=== PATIENT | female | born 1980 | race Caucasian/White ===

== ENCOUNTER 2021-04-08 12:30 | Outpatient (REF) | payer MEDICAID, OTHER, SELFPAY ==
--- NOTE | ~2021-04-08 | US_ITS ---
EXAMINATION: US PELVIS AND TRANSVAGINAL. CLINICAL INFORMATION: Pelvic pain. COMPARISON: Ultrasound pelvis 11/29/2019 TECHNIQUE: Transabdominal and transvaginal imaging of pelvis is performed. FINDINGS: The uterus is anteverted and anteflexed measuring 9.1 cm in length, 4.4 cm AP and 5.4 cm in transverse dimension. Endometrial thickness is 0.9 cm. There are 2 hypoechoic lesions visualized. Lesion in the right body of uterus measures 1.7 x 2.2 x 1.5 cm. Previously it measured 1.6 x 1.4 x 1.4 cm. Lesion in the left posterior body of uterus measures 1.7 x 1.5 x 1.3 cm. Previously it measured 1.6 x 1.3 x 1.8 cm. Right ovary measures 3.0 x 3.1 x 1.8 cm and volume 8.9 mL. Previously it measured 3.0 x 1.7 x 2.0 cm and volume 5.5 mL. Left ovary measures 1.8 x 2.4 x 1.3 cm and volume 2.9 mL. Previously it measured 3.4 x 1.8 x 1.9 cm and volume 6.2 mL. There is no free fluid in the cul-de-sac. US/US pelvic and transvaginal IMPRESSION: 2 uterine fibroids, stable compared to 2019 ultrasound exam.
== END 2021-04-08 12:31 | disposition home or self-care (01) ==
LOC: HO.US 12:30
PROVIDERS: PCP Internal Medicine; Visit Provider Internal Medicine
DX: R10.2 Pelvic and perineal pain (principal)
CPT/HCPCS: 76830; 76856

== ENCOUNTER 2021-09-24 08:10 | Outpatient (REF) | payer MEDICAID, OTHER, SELFPAY ==
--- NOTE | ~2021-09-24 | MM_ITS ---
EXAMINATION: MM SCREENING DIGITAL BREAST TOMOSYNTHESIS, BILATERAL CLINICAL INFORMATION: Screening. Asymptomatic. The lifetime risk of breast cancer based on the Tyrer-Cuzick Model is 6.7%. COMPARISON: Mammography: 01/22/2019 TECHNIQUE: Digital breast tomosynthesis is performed in both the craniocaudal and mediolateral oblique views along with computer-aided detection (CAD). Synthesized 2D images are generated from the tomosynthesis. FINDINGS: The breasts are heterogeneously dense, which may obscure small masses (ACR BI-RADS breast composition Category c). There is a stable parenchymal pattern of the right breast. In the deep superior aspect of the left breast there is an approximately 2.0 x 0.8 cm irregularly-marginated density which appears somewhat larger than on prior study but may represent superimposition of fibroglandular tissue. Recommend spot compression view in mediolateral oblique projection as well as 90 degree mediolateral view for further evaluation. MM/MM tomosynthesis screening BI IMPRESSION: Question developing density deep superior aspect of the left breast. ASSESSMENT: BI-RADS 0: Incomplete - Need Additional Imaging Evaluation RECOMMENDATION: 1. Additional views of the left breast. 2. Targeted ultrasound if warranted after review of the additional views. 3. Radiology department staff will contact the patient for additional imaging. This patient's information was entered into a reminder system with a target due date for their next mammogram.
== END 2021-09-24 08:11 | disposition home or self-care (01) ==
LOC: HO.MAMMO 08:10
PROVIDERS: Visit Provider Internal Medicine
DX: Z12.31 Encounter for screening mammogram for malignant neoplasm of breast (principal)
CPT/HCPCS: 77063; 77067

== ENCOUNTER 2021-09-30 08:13 | Outpatient (REF) | payer MEDICAID, OTHER, SELFPAY ==
--- NOTE | ~2021-09-30 | MM_ITS ---
EXAMINATION: MM DIAGNOSTIC DIGITAL BREAST TOMOSYNTHESIS, LEFT CLINICAL INFORMATION: Recall from screening for developing density posterior upper left breast. TC score 7%. COMPARISON: Mammography: 09/24/2021, 01/22/2019 TECHNIQUE: Digital breast tomosynthesis is performed. 2D images are generated from the tomosynthesis. The following views are obtained: Spot MLO, standard ML FINDINGS: There are scattered areas of fibroglandular density (ACR BI-RADS breast composition Category b). Breast tissue composition borders on heterogeneously dense. There are scattered shifting fibroglandular densities with positioning among the exams. Additional views show no underlying mass or developing density or architectural abnormality. No significant changes from prior exams. Results are discussed with the patient at time of visit. MM/MM tomosynthesis added views L IMPRESSION: Additional views show scattered fibroglandular densities similar to prior exams. ASSESSMENT: BI-RADS 1: Negative RECOMMENDATION: Routine annual mammography screening. This patient's information was entered into a reminder system with a target due date for their next mammogram.
== END 2021-09-30 08:14 | disposition home or self-care (01) ==
LOC: HO.MAMMO 08:13
PROVIDERS: PCP Internal Medicine; Visit Provider Internal Medicine
DX: R92.2 Inconclusive mammogram (principal)
CPT/HCPCS: 77061; 77065

== ENCOUNTER 2022-09-13 13:58 | Outpatient (REF) | payer MEDICAID, OTHER, SELFPAY ==
--- NOTE | ~2022-09-13 | US_ITS ---
EXAMINATION: US PELVIS CLINICAL INFORMATION: Abnormal bleeding. COMPARISON: 04/08/2021 pelvic ultrasound. TECHNIQUE: Ultrasound of the pelvis is performed using both transabdominal and transvaginal transducers along with Doppler. Transvaginal imaging is performed due to inadequate visualization transabdominally. FINDINGS: Uterus: Anteverted/anteflexed 8.7 x 4.9 x 5.7 cm. Several uterine fibroids are seen. A warehouse representative intramural fibroid in the posterior body mildly displaces the adjacent endometrium anteriorly and measures 2.7 x 2.4 x 2.3 cm. A second intramural fibroid in the left body measures 1.9 x 1.9 x 1.4 cm. The endometrium again, is displaced anteriorly and measures up to 0.6 cm in the visualized segment of the body without focal abnormality. And IUD is seen positioned in the lower uterine segment terminating at the level the inferior margin of the posterior body. Fibroid detailed above. The endometrium is closed without focal abnormality. Right ovary measures 2.9 x 1.7 x 2.8 cm. Volume 7.2 mL. Dominant follicle measuring 1.1 cm. Doppler showed no abnormal vascular flow. Left ovary was not confidently identified. No left adnexal abnormality. US/US pelvic and transvaginal IMPRESSION: 1. Fibroid uterus as detailed above. The IUD is seen within the endometrial canal in the inferior uterine segment. Proper placement appears to have been blocked by the fibroid in the posterior body. The fibroid abuts and displaces the endometrium and could be a source of the patient's abnormal bleeding. No other significant endometrial abnormality. 2. No right ovarian abnormality. Nonvisualization of the left ovary without overt left adnexal abnormality.
== END 2022-09-13 13:59 | disposition home or self-care (01) ==
LOC: HO.HMGCX 13:58
PROVIDERS: PCP Internal Medicine; Visit Provider Internal Medicine
DX: N93.9 Abnormal uterine and vaginal bleeding, unspecified (principal)
CPT/HCPCS: 76830; 76856

== ENCOUNTER 2022-10-27 13:11 | Outpatient (REF) | payer MEDICAID, OTHER, SELFPAY ==
--- NOTE | ~2022-10-27 | MM_ITS ---
EXAMINATION: MM SCREENING DIGITAL BREAST TOMOSYNTHESIS, BILATERAL CLINICAL INFORMATION: Screening. Asymptomatic. The lifetime risk of breast cancer based on the Tyrer-Cuzick Model is 6%. COMPARISON: Mammography: 09/30/2021, 09/24/2021 01/22/2019 (baseline) TECHNIQUE: Digital breast tomosynthesis is performed in both the craniocaudal and mediolateral oblique views along with computer-aided detection (CAD). Synthesized 2D images are generated from the tomosynthesis. FINDINGS: There are scattered areas of fibroglandular density (ACR BI-RADS breast composition Category b). There are no significant masses, abnormal calcifications, or other abnormalities. Breast tissue composition borders on heterogeneously dense. No developing density or architectural abnormality. The axilla and skin contours are unremarkable. No significant changes. MM/MM tomosynthesis screening BI IMPRESSION: No mammographic evidence of malignancy. ASSESSMENT: BI-RADS 1: Negative RECOMMENDATION: Routine annual mammography screening. This patient's information was entered into a reminder system with a target due date for their next mammogram.
== END 2022-10-27 13:12 | disposition home or self-care (01) ==
LOC: HO.MAMMO 13:11
PROVIDERS: PCP Internal Medicine; Visit Provider Internal Medicine
DX: Z12.31 Encounter for screening mammogram for malignant neoplasm of breast (principal)
CPT/HCPCS: 77063; 77067

== ENCOUNTER 2023-10-31 12:44 | Outpatient (REF) | payer OTHER, SELFPAY | END 2023-10-31 12:45 | disposition home or self-care (01) | LOC: HO.MAMMO 12:44 | PROVIDERS: PCP Internal Medicine; Visit Provider Internal Medicine | DX: Z12.31 Encounter for screening mammogram for malignant neoplasm of breast (principal) | CPT/HCPCS: 77063; 77067 ==

== ENCOUNTER → 2023-10-31 13:00 | Outpatient (BNV) | payer OTHER, SELFPAY | PROVIDERS: PCP Internal Medicine; Visit Provider Radiology Diagnostic Radiology | DX: Z12.31 Encounter for screening mammogram for malignant neoplasm of breast (principal) | CPT/HCPCS: 77063; 77067 ==

== ENCOUNTER 2024-02-23 16:28 | Outpatient (REF) | payer OTHER, SELFPAY ==
[2024-02-23 17:17] LABS: MANUAL DIFF FLAG NO
[2024-02-23 17:26] LABS: Basophils Percent Auto 0.2 % (0-2); Eosinophils Absolute Auto 0.2 X10*3/uL (0.0-0.4); Eosinophils Percent Auto 1.7 % (0-4); Hematocrit 35.2 % (37.0-47.0); Hemoglobin 12.6 g/dl (12.0-16.0); Imm Gran Abs Auto 0.04 X10*3/uL (0.00-0.03); Imm Gran Pct Auto 0.5 % (0.0-0.4); Lymphocytes Absolute Auto 2.7 X10*3/uL (1.2-4.9); Lymphocytes Percent Auto 31.9 % (20-40); Mean Corpuscular HGB Conc 35.8 g/dl (31.0-35.0); Mean Corpuscular Hemoglobin 32.1 pg (27.0-33.0); Mean Corpuscular Volume 89.8 fL (80.0-98.0); Mean Platelet Volume 11.1 fL (9.4-12.3); Monocytes Absolute Auto 0.8 X10*3/uL (0.1-1.2); Monocytes Percent Auto 9.4 % (2-11); Neutrophils Absolute Auto 4.8 x10*3/uL (2.0-8.3); Neutrophils Percent Auto 56.3 % (45-73); Platelet Count 306 X10*3/uL (160-400); Red Blood Count 3.92 X10*6/uL (4.20-5.50); Red Cell Distribution Width 12.5 % (11.0-16.0); White Blood Count 8.6 X10*3/uL (4.8-10.8)
[2024-02-23 18:46] LABS: Alanine Aminotransferase 18 U/L (0-31); Alkaline Phosphatase 56 U/L (39-117); Anion Gap 10 (12-20); Aspartate Amino Transferase 17 U/L (5-31); Bilirubin Total 0.3 mg/dL (0.0-1.0); Blood Urea Nitrogen 19 mg/dL (9-16); Calcium 9.5 mg/dL (8.4-10.2); Carbon Dioxide 28 mmol/L (22-29); Chloride 104 mmol/L (96-108); Cholesterol 211 mg/dL (<200); Estimated Glomerular Filt Rate > 60; Glucose Random 76 mg/dL (60-115); HDL Cholesterol 41 mg/dL (>40); LDL Cholesterol Calculated 130 mg/dL (<100); Potassium 3.1 mmol/L (3.3-5.1); Sodium 139 mmol/L (135-145); Total Protein 7.6 g/dL (6.5-8.0); Triglycerides 201 mg/dL (<150)
[2024-02-23 19:02] LABS: Vitamin B12 261 pg/mL (200-900)
[2024-02-23 19:03] LABS: TSH reflex Free T4 0.66 uIU/mL (0.32-4.0); Vitamin D 25-OH Total 27.1 ng/mL (>30)
== END 2024-02-23 16:29 | disposition home or self-care (01) ==
LOC: HO.CHCLDS 16:28
PROVIDERS: Visit Provider Internal Medicine
DX: J01.90 Acute sinusitis, unspecified (principal); B96.89 Other specified bacterial agents as the cause of diseases classified elsewhere; I10 Essential (primary) hypertension; E78.00 Pure hypercholesterolemia, unspecified
CPT/HCPCS: 36415; 80053; 80061; 82306; 82607; 84443; 85025

== ENCOUNTER 2024-11-13 15:04 | Outpatient (REF) | payer OTHER, SELFPAY | END 2024-11-13 15:05 | disposition home or self-care (01) | LOC: HO.MAMMO 15:04 | PROVIDERS: PCP Internal Medicine; Visit Provider Internal Medicine | DX: Z12.31 Encounter for screening mammogram for malignant neoplasm of breast (principal) | CPT/HCPCS: 77063; 77067 ==

== ENCOUNTER → 2024-11-13 15:15 | Outpatient (BNV) | payer OTHER, SELFPAY | PROVIDERS: PCP Internal Medicine; Visit Provider Internal Medicine | DX: Z12.31 Encounter for screening mammogram for malignant neoplasm of breast (principal) | CPT/HCPCS: 77063; 77067 ==

== ENCOUNTER 2025-11-18 14:54 | Outpatient (REF) | payer OTHER, SELFPAY ==
--- OUTSIDE RECORDS SUMMARY | 2025-11-18 18:08 | XMS_ITS | Encounter Summary ---
Author Organization [employer] Address [address] [facility] 7 [place] [address] Care Team Providers Care Packer And Carry Out Name Role Phone Monet Brunner MD Primary Care Provider [phone]- [phone] Encounter Details Date Type Department Care Team ([facility] Contact Info) Description 09/29/2023 Orders Only [facility] CHC MED & PEDS [address] [place], [place] [phone] Monet Brunner MD [address] [place] [address] Menopausal symptoms (Primary Dx) Social History Tobacco Use Types Packs/Day Years Used Date Smoking Tobacco: Never Smokeless Tobacco: Never Depression Answer Date Recorded Patient Health Questionnaire-9 Score 0 04/12/2023 Housing Stability Answer Date Recorded What is your housing situation today? I have guillaume taveras 09/14/[address] you li ve. Do you have problems with any of the following? None of the above 09/14/2023 Food Insecurity Answer Date Recorded Within the past 12 months, y ou worried that your food would run out before you got money to buy more: Never True 09/14/2023 Within the past 12 months,th e food you bought just didn't last and you didn't have enough money to get more: Never True Transportation Answer Date Recorded In the past 12 months, has l ack of transportation kept you from medical appts, meetings, work or from getting things needed for daily living? No 09/14/2023 Utilities Answer Date Recorded In the past 12 months, has t he electric, gas, oil or water company threatened to shut off services in your home? No 09/14/2023 Depression Answer Date Recorded Patient Health Questionnaire-2 Score 0 04/12/2023 Comments Unknown Sex and Gender Information Value Date Recorded Sex Assigned at Female 09/27/2022 10:34 AM EDT Legal Sex Female 10:34 AM EDT Gender Identity Female 09/27/2022 10:34 AM EDT Sexual Orientation Straight 09/27/2022 10 :34 AM EDT documented as of this encounter Plan of Treatment Not on file documented as of this encounter Visit Diagnoses Diagnosis Menopausal symptoms- Primary Symptomatic menopausal or female climacteric states documented in this encounter Additional Health Concerns Assessment Noted Time PHQ-9 Depression Total Score: 0 04/12/20 23 10:32 AM EDT documented as of this encounter Care Teams Packer And Carry Out Relationship Specialty Start Date End Date Monet Brunner MD [address] [place] [id number] PCP - General Internal Medicine 12/27/18 documented as of this encounter
--- OUTSIDE RECORDS SUMMARY | 2025-11-18 18:08 | XMS_ITS | Encounter Summary ---
Author Organization [employer] Address [address] [facility] 7 [place] [address] Care Team Providers Care Senior Executive Assistant Name Role Phone Monet Brunner MD Primary Care Provider [phone]- [phone] Encounter Details Date Type Department Care Team ([facility] st Contact Info) Description 02/15/2024 Telephone [facility] MEDICINE [address] [place] [address] Monet Brunner MD [address] [place], [place] [phone] Social History Tobacco Use Types Packs/Day Years Used Date Smoking Tobacco: Never Smokeless Tobacco: Never Depression Answer Date Recorded Patient Health Questionnaire-9 Score 0 04/12/2023 Housing Stability Answer Date Recorded What is your housing situation today? I have guillaumekaruna taveras 09/14/[address] you [...] documented as of this encounter Visit Diagnoses Not on filedocumented in this encounter Additional Health Concerns Assessment Noted Time PHQ-9 Depression Total Score: 0 04/12/20 23 10:32 AM EDT documented as of this encounter Care Teams Senior Executive Assistant Relationship Specialty Start Date End Date Monet Brunner MD [address] [place] [id number] PCP - General Internal Medicine 12/27/18 documented as of this encounter
--- OUTSIDE RECORDS SUMMARY | 2025-11-18 18:08 | XMS_ITS | Encounter Summary ---
Author Organization [employer] Address [address] [place] [address] Care Team Providers Care Photonics Engineering Technician Name Role Phone Monet Brunner MD Primary Care Provider [phone]- [phone] Reason for Visit * Reason Comments Med Refill Encounter Details Date Type Department Care Team (Late st Contact Info) Description 08/20/2023 Refill [facility] MEDICINE [address] [place] [address] Monet Brunner MD [address] [place] [address] Menopausal and female climacteric states Social History Tobacco Use Types Packs/Day Years Used Date Smoking Tobacco: Never Smokeless Tobacco: Never Depression Answer Date Recorded Patient Health Questionnaire-9 Score 0 04/12/2023 Depression Answer Date Recorded Patient Health Questionnaire-2 [...] of this encounter Visit Diagnoses Diagnosis Menopausal and female climacteric states documented in this encounter Additional Health Concerns Assessment Noted Time PHQ-9 Depression Total Score: 0 04/12/20 23 10:32 AM EDT documented as of this encounter Care Teams Photonics Engineering Technician Relationship Specialty Start Date End Date Monet Brunner MD [address] [place] [id number] PCP - General Internal Medicine 12/27/18 documented as of this encounter
--- OUTSIDE RECORDS SUMMARY | 2025-11-18 18:08 | XMS_ITS | Encounter Summary ---
Author Organization [employer] Address [address] [facility] 7 [place] [address] Care Team Providers Care Art Education Professor Name Role Phone Monet Brunner MD Primary Care Provider [phone]- [phone] Encounter Details Date Type Department Care Team ([facility] st Contact Info) Description 02/15/2024 Telephone [facility] MEDICINE [address] [place] [address] Monet Brunner MD [address] [place], [place] [phone] Social History Tobacco Use Types Packs/Day Years [...] documented as of this encounter Care Teams Art Education Professor Relationship Specialty Start Date End Date Monet Brunner MD [address] [place] [phone] PCP - General Internal Medicine 12/27/18 documented as of this encounter
--- OUTSIDE RECORDS SUMMARY | 2025-11-18 18:08 | XMS_ITS | Encounter Summary ---
Author Organization [facility] Address [address] [place] [address] Care Team Providers Care Dress Fitter Name Role Phone Monet Brunner Primary Care Provider Encounter Details Date Type Department Care Team ([facility] st Contact Info) Description 07/19/2023 Orders Only [facility] Interventional Radiology [address] [place] [address] Efrain Torrez MD [address] [facility] Interventional [place] [address] Social History Tobacco Use Types Packs/Day Years Used Date Smoking Tobacco: Never Smokeless Tobacco: Never Alcohol Use Standard Drinks/Week Comments Yes 0 (1 standard drink = 0.6 oz pur e alcohol) occasional - 1 per month Comments No Sex and Gender Information Value Date Recorded Sex Assigned at Female 11/27/2022 3:17 PM EST Legal Sex Female 10:28 AM EST Gender Identity Female 11/27/2022 3:17 PM EST Sexual Orientation Straight 11/27/2022 3: 17 PM EST documented as of this encounter Plan of Treatment Not on file documented as of this encounter Visit Diagnoses Not on filedocumented in this encounter Care Teams Dress Fitter Relationship Specialty Start Date End Date Monet Brunner [address] [place] [address] PCP - General Internal Medicine 11/06/19 documented as of this encounter
--- OUTSIDE RECORDS SUMMARY | 2025-11-18 18:09 | XMS_ITS | Encounter Summary ---
Author Organization [employer] Address [address] [facility] 7 [place] [address] Care Team Providers Care Diamond Saw Operator Name Role Phone Monet Brunner MD Primary Care Provider [phone]- [phone] Encounter Details Date Type Department Care Team ([facility] Contact Info) Description 03/14/2025 Orders Only [facility] CHC MED & PEDS [address] [place], [place] [phone] Monet Brunner MD [address] [place] [address] Social History Tobacco Use Types Packs/Day Years Used Date Smoking Tobacco: Never Smokeless Tobacco: Never Alcohol Answer Date Recorded How often do you have a drink containing alcohol ? 1 01/16/2025 How many drinks containing a lcohol do you have on a typical day when you are drinking? 0 01/16/2025 How often do you have six or more drinks on one occasion? 0 01/16/2025 Depression Answer Date Recorded Patient Health Questionnaire-9 Score 1 01/16/2025 Patient Health Questionnaire-9 Score 1 01/16/2025 Last PHQ-9: Questionnaire Data Not on file 0 01/16/2025 Housing Stability Answer Date Recorded What is your housing situation today? I have guillaume taveras 08/14/[address] you li ve. Do you have problems with any of the following? None of the above 08/14/2024 Food Insecurity Answer Date Recorded Within the past 12 months, y ou worried that your food would run out before you got money to buy more: Never True 08/14/2024 Within the past 12 months,th e food you bought just didn't last and you didn't have enough money to get more: Never True Transportation Answer Date Recorded In the past 12 months, has l ack of transportation kept you from medical appts, meetings, work or from getting things needed for daily living? No 08/14/2024 Utilities Answer Date Recorded In the past 12 months, has t he electric, gas, oil or water company threatened to shut off services in your home? No 08/14/2024 Depression Answer Date Recorded Patient Health Questionnaire-2 Score 0 01/16/2025 Internet Access Answer Date Recorded Internet Access Q1 Yes 08/14/2024 Internet Access Q2 Not on file 08/14/2024 Comments Unknown Sex and Gender Information Value [...] Assessment Noted Time PHQ-9 Depression Total Score: 1 01/16/20 25 3:59 PM EST documented as of this encounter Care Teams Diamond Saw Operator Relationship Specialty Start Date End Date Monet Brunner MD [address] [place] [address] PCP - General Internal Medicine 12/27/18 documented as of this encounter
--- OUTSIDE RECORDS SUMMARY | 2025-11-18 18:09 | XMS_ITS | Clinical Summary ---
Author Organization [facility] Address [address] [facility] [address] [place] [address] Phone Care Team Providers Care Qa Tester Name Role Phone Unknown, Unknown Primary Care Provider Unavai lable Allergies No known active allergies Medications triamcinolone acetonide 0.5 % cream Apply topically 3 (three) times a day. To back portion of hands 30 g 8 Active Active Problems No known active problems Social History Tobacco Use Types Packs/Day Years Used Date Smoking Tobacco: Never Smokeless Tobacco: Never Alcohol Use Standard Drinks/Week Comments No 0 (1 standard drink = 0.6 oz pur e alcohol) Education Answer Date Recorded Are you interested in more education? Not on karissa e 03/25/2023 Are you concerned about learning? Not on file 03/25/2023 No 03/25/2023 No 03/25/2023 Digital Access Answer Date Recorded No 04/26/2023 No 04/26/2023 No 04/26/2023 Reliable internet access at home? Not on file 04/26/2023 Device with a working camera? Not on file Comments No Sex and Gender Information Value Date Recorded Sex Assigned at Female 11/06/2018 9:25 PM EST Legal Sex Female 9:09 PM EST Gender Identity Female 11/06/2018 9:25 PM EST Sexual Orientation Straight 11/06/2018 9: 25 PM EST Last Filed Vital Signs Vital Sign Reading Time Taken Comments Blood Pressure 152/97 11/06/2018 9:23 PM EST Pulse 104 11/06/2018 9:23 PM EST Temperature 37 C (98.6 F) 11/06/2018 9:23 PM EST Respiratory Rate 19 11/06/2018 9:23 PM EST Oxygen Saturation 100% 11/06/2018 9:23 PM EST Inhaled Oxygen Concentration - - Weight 68 kg (149 lb 14.6 oz) 11/06/2018 9:23 PM EST Height 154.9 cm (5' 1 ) 11/06/2018 9:23 PM EST Body Mass Index 28.33 11/06/2018 9:23 PM EST Plan of Treatment Not on file Medical Devices Not on file Insurance [employer] NET FULL [employer] HE[employer] NET FULL [employer] [facility] SAFETY NET FULL [employer] HEALTH SAF[employer]Y NET FULL [facility] NET FULL [facility] [employer] NET FULL [employer] HE[employer] NET FULL [facility] NET FULL [facility] LIMITED [employer] SAF[employer] NET FULL Member Subscriber Plan / Payer ( fective 2018-Present) Name:oRxanne Chávez Relation to Subscriber:Self Name:Roxanne Chávez Payer ID:Not on file Group ID:Not on file Type:Medicaid Address: [place] [id number] Care Teams Qa Tester Relationship Specialty Start Date End Date Unknown, Unknown, PCP - General 11/06/18 Additional Source Comments The information contained in this document represents components of the legal health record. It is not the complete legal health record.[facility]
--- OUTSIDE RECORDS SUMMARY | 2025-11-18 18:09 | XMS_ITS | Clinical Summary ---
Author Organization [employer] Address [address] [facility] 7 [place] [address] Care Team Providers Care Protective Services Social Worker Name Role Phone Monet Brunner MD Primary Care Provider Allergies No known active allergies Medications ibuprofen 400 MG tabletIndication s:Vagina bleeding TAKE ONE TABLET BY MOUTH EVERY 4 TO 6 HOURS NEEDED WITH FOOD 30 tablet 1 01/21/20 23 Active Multiple Vitamin (Multi-Vitamin) tablet take 1 Tablet by Oral route once 01/04/20 22 Active ibuprofen 600 MG tablet TAKE ONE TABLET BY MOUTH EVERY 6 HOURS NEEDED FOR PAIN 12/21/19 23 Active fluconazole (Diflucan) 150 MG tablet take 1 tablet every 3 days for a total of 3 doses (followed by weekly fluconazole 100mg) 01/12/20 22 Active fluconazole (Diflucan) 100 MG tablet take 1 tablet by oral route every week after completing fluconazole 150mg x 3 doses 01/12/20 22 Active ferrous sulfate 325 (65 Fe) MG tablet take 1 tablet by oral route 2 times every day 180 tablet 02/18/20 23 Active cholecalciferol (Vitamin D-3) 25 MCG tablet TAKE ONE TABLET BY MOUTH EVERY DAY 90 tablet 3 06/01/20 23 Active triamcinolone (Kenalog) 0.1 % creamIndications :History of nummular eczema APPLY TO THE AFFECTED AREA(S) TWICE DAILY IN THE MORNING AND AT BEDTIME NEEDED PAIN AND FOR SWELLING 30 g 2 08/29/20 23 Active cetirizine (ZyrTEC) 10 MG tabletIndication s:Acute bacterial sinusitis Take 1 tablet (10 mg) by mouth in the morning. 30 tablet 2 02/23/20 24 Active Dulaglutide 3 MG/0.5ML solution auto-injectorInd ications:Obesity (BMI 30-39.9) Inject 3 mg under the skin every 7 (seven) days AND 3 mg every 7 (seven) days. INJECT ONE PEN (=3MG) SUBCUTANEOUSLY ONCE A WEEK. 2 mL 09/13/20 24 Active Dulaglutide (Trulicity) 4.5 MG/0.5ML solution auto-injectorInd ications:Obesity (BMI 30-39.9) Inject 0.5 mL under the skin 1 (one) time per week. 2 mL 11 09/14/20 24 Active Misc. Devices (Pulse Oximeter For Finger) miscIndications: COVID-19 O2 sat every 4-6 hours. Call the office if the O2 sat drops below 88% 1 each 11/22/20 24 Active venlafaxine (Effexor) 37.5 MG tabletIndication s:Menopausal and female climacteric states TAKE 1 TABLET (37.5 MG) BY MOUTH IN THE MORNING. WITH FOOD 90 tablet 1 12/20/19 25 Active semaglutide (Ozempic) 2 MG/1.5ML solution pen-injectorIndi cations:Obesity (BMI 30-39.9) Inject 0.25 mg under the skin 1 (one) time per week. 1 each 1 01/16/20 25 Active atenolol (Tenormin) 50 MG tabletIndication s:Primary hypertension Take 1 tablet (50 mg) by mouth Once per day. 30 tablet 11 5 4:22 PM EST 02/12/20 25 026 Active hydroCHLOROthiaz ivory 12.5 MG tabletIndication s:Primary hypertension Take 1 tablet (12.5 mg) by mouth Once per day. 30 tablet 11 5 4:22 PM EST 02/12/20 25 026 Active Phentermine-Topi ramate 7.5-46 MG capsule sustained-releas e 24 hrIndications:Cl ass 1 obesity due to excess calories without serious comorbidity with body mass index (BMI) of 32.0 to 32.9 in adult 1 capsule a day 30 capsule 2 02/12/20 25 Active cholecalciferol (Vitamin D-3) 25 MCG tabletIndication s:Low vitamin D level TAKE ONE TABLET EVERY MORNING 60 tablet 11 05/21/20 25 Active phentermine 15 MG capsuleIndicatio ns:Obesity (BMI 30-39.9) TAKE ONE CAPSULE BY MOUTH ONCE DAILY BEFORE A MEAL 30 capsule 2 08/23/20 25 Active topiramate (Topamax) 50 MG tabletIndication s:Obesity (BMI 30-39.9) Take 1 tablet (50 mg) by mouth Once per day. 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 Hypercholesterolemia 04/12/2023 Primary hypertension 04/12/2023 Vitamin D deficiency 12/02/2021 Encounters Date Type Department Care Team Description 10/18/2025 Telephone [facility] [address] [place] [address] Monet Brunner MD recall appt 09/06/2025 Refill [facility] [address] [place] [address] Monet Brunner MD Menopausal symptoms 09/05/2025 Telephone [facility] [address] [place] [address] Monet Brunner MD 09/05/2025 Refill [facility] [address] [place] [address] Monet Brunner MD Obesity (BMI 30-39.9) 08/22/2025 Refill [facility] [address] [place] [address] Monet Brunner MD Obesity (BMI 30-39.9) from Last 3 Months Social History Tobacco Use Types Packs/Day Years Used Date Smoking Tobacco: Never Smokeless Tobacco: Never Tobacco Cessation:Counseling Given: No Alcohol Answer Date Recorded How often do [...] Orientation Straight 09/27/2022 10 :34 AM EDT Last Filed Vital Signs Vital Sign Reading Time Taken Comments Blood Pressure 129/79 05/20/2025 8:59 AM EDT Pulse 70 05/20/2025 8:59 AM EDT Temperature 36.8 C (98.2 F) 05/20/2025 8:59 AM EDT Respiratory Rate 18 05/20/2025 8:59 AM EDT Oxygen Saturation 98% 05/20/2025 8:59 AM EDT Inhaled Oxygen Concentration - - Weight 72.6 kg (160 lb) 05/20/2025 8:59 AM EDT Height 154.9 cm (5' 1 ) 05/20/2025 8:59 AM EDT Body Mass Index 30.23 05/20/2025 8:59 AM EDT Plan of Treatment Health Maintenance Due Date Last Done Comments CT Colonography 1978 Colonoscopy 1978 Colorectal Cancer Screening 1978 FIT DNA/Cologuard 1978 FIT 1978 FOBT 1978 HIV Screening 1978 Sigmoidoscopy 1978 Family Planning (PISQ) 1993 Hepatitis C Screening 1996 Hepatitis B Vaccines (2 of 2 - CpG 2-dose series) 08/12/2024 07/15/2024 COVID-19 Vaccine ( - season) 2025 07/17/2024, 09/16/2021, 03/11/2021, Additional history exists Influenza Vaccine (#1) 2025 , 08/17/2022, 12/25/2021 Disability Screening 11/22/2025 11/22/2024 Alcohol/Substance Use Screening 01/16/2026 01/16/2025 Depression Screening 01/16/2026 01/16/2025, 01/16/20 25 SDOH Screening 01/16/2026 01/16/2025 Tobacco Screening 01/16/2026 01/16/2025 Mammogram 11/13/2026 11/13/2024, 1202/2023, 10/10/2023, Additional history exists Cervical Cancer Screening 01/12/2027 HPV/Cotest 01/12/2027 01/12/2022, 01/09/2019 Pap Smear 01/12/2027 01/12/2022 Zoster Vaccines (1 of 2) 2028 Lipid Panel 02/22/2029 02/23/2024, 04/30, 10/31/2020 DTaP/Tdap/Td Vaccines (3 - Td or Tdap) 12/28/2031 12/28/2021, 08/12/2014 RSV Patients and Patients Aged 60 years or older (1 - 1-dose 75+ series) 2053 HIB Vaccines Aged Out No longer eligi ble based on patient's age to complete this topic HPV Vaccines Aged Out No longer eligi ble based on patient's age to complete this topic Hepatitis A Vaccines Aged Out No long er eligible based on patient's age to complete this topic IPV Vaccines Aged Out No longer eligi ble based on patient's age to complete this topic Meningococcal B Vaccine Aged Out No l onger eligible based on patient's age to complete this topic Meningococcal Vaccine Aged Out No krystle ariel eligible based on patient's age to complete this topic Pneumococcal Vaccine: Pediatrics (0 to 5 Years) and At-Risk Patients (6 to 49) Years Aged Out No longer eligible based on patient's age to complete this topic RSV under 20 months Aged Out No longe r eligible based on patient's age to complete this topic Rotavirus Vaccines Aged Out No longer eligible based on patient's age to complete this topic Procedures Procedure Name Priority Date/Time Associated Diagnosis Comments BI MAMMOGRAM SCREENING TOMOSYNTHESIS BILATERAL Routine 11/13/2024 3:10 PM EST LIPID PANEL, STANDARD Routine 02/23/2024 4:30 PM EDT Acute bacterial sinusitis Primary hypertension Hypercholesterolem ia THINPREP IMAGING PAP AND HPV MRNA E6/E7 WITH REFLEX TO HPV 16,18/45 Routine 01/12/2022 9:43 AM EST from Last 3 Months or Most Recently Relevant to Health Maintenance Results * BI Mammogram Screening Tomosynthesis Bilateral (11/13/2024 3:10 PM EST) Anatomical Region Laterality Modality Breast Bilateral Mammography 11/13/2024 3:10 PM EST Narrative 11/23/2024 5:55 PM EST [facility] [address] [place] [address] Mammography Report Signed Patient: Roxanne Chávez MR#: [id number] : 1980 Acct:[id number] Age/Sex: 44 / F ADM Date: 11/13/24 Loc: HO.MAMMO Attending Dr: Monet Brunner MD Ordering Physician: Monet Brunner MD Results: 1 Negative Date of Service: 11/13/24 Follow Up: 1 Year From Orig inal Mammogram Procedure(s): MM tomosynthesis screening BI Accession Number(s): [id number] cc: Monet Brunner MD EXAMINATION: MM SCREENING DIGITAL BREAST TOMOSYNTHESIS, BILATERAL CLINICAL INFORMATION: Screening. Asymptomatic. COMPARISON: Mammography: Comparison is made with available priors TECHNIQUE: Digital breast mammography with tomosynthesis is performed in both the craniocaudal and mediolateral oblique views along with computer-aided detection (CAD). FINDINGS: There are scattered areas of fibroglandular density (ACR BI-RADS breast composition Category b). There are no significant masses, abnormal calcifications, or other abnormalities. MM/MM tomosynthesis screening BI IMPRESSION: No mammographic evidence of malignancy. ASSESSMENT: BI-RADS BI-RADS 1 - Negative RECOMMENDATION: Routine annual mammography screening. 1 year F/U This examination should not preclude the clinical evaluation of a suspicious palpable abnormality. This patient's information was entered into a reminder system with a target due date for their next mammogram. Electronically signed by: Kinjal Conrad DO 11/23/2024 05:52 PM [facility] Dictated By: Kinjal Conrad DO Signed By: <Electronically signed by Kinjal Conrad DO in OV> 11/23/24 1752 DD/ 1510 TD/TT: 11/13/24 1528 Campground Caretaker: Procedure Note Donotuseinterpreter, Image - 11/23/2024 [facility] [address] [place] [address] Dr. [place], [place] [address] Mammography Report Signed Patient: Roxanne Chávez#: [id number] : 1980Acct:[id number] Age/Sex: 44 / FADM Date: 11/13/24 Loc: HO.MAMMO Attending Dr: Monet Brunner MD Ordering Physician: Monet Brunner MDResults: 1 Negative Date of Service: 11/13/24Follow Up: 1 Year From Orig inal Mammogram Procedure(s): MM tomosynthesis screening BI Accession Number(s): [id number] cc: Monet Brunner MD EXAMINATION: MM SCREENING DIGITAL BREAST TOMOSYNTHESIS, BILATERAL CLINICAL INFORMATION: Screening. Asymptomatic. COMPARISON: Mammography: Comparison is made with available priors TECHNIQUE: Digital breast mammography with tomosynthesis is performed in both the craniocaudal and mediolateral oblique views along with computer-aided detection (CAD). FINDINGS: There are scattered areas of fibroglandular density (ACR BI-RADS breast composition Category b). There are no significant masses, abnormal calcifications, or other abnormalities. MM/MM tomosynthesis screening BI IMPRESSION: No mammographic evidence of malignancy. ASSESSMENT: BI-RADS BI-RADS 1 - Negative RECOMMENDATION: Routine annual mammography screening. 1 year F/U This examination should not preclude the clinical evaluation of a suspicious palpable abnormality. This patient's information was entered into a reminder system with a target due date for their next mammogram. Electronically signed by: Kinjal Conrad DO 11/23/2024 05:52 PM EST Dictated By: Kinjal Conrad DO Signed By: <Electronically signed by Kinjal Conrad DO in OV> 11/23/24 1752 DD/ 1510 TD/TT: 11/13/24 1528 Campground Caretaker: us Monet Brunner MD IM BI PROCEDURES Final Res ult * (ABNORMAL) Lipid Panel, Standard (02/23/2024 4:30 PM EDT) Triglycerides 201(H) <150 mg/dL [facility] Comment:Desirable Triglyceri de: less than 150 mg/dLBorderline High Triglyceride 150-199 mg/dLHigh Triglyceride: 200-499 mg/dLVery High Triglyceride: greater than or equal to 5OO mg/dL Cholesterol 211(H) <200 mg/dL [facility] Comment:Desirable Cholestero l: less than 200 mg/dLBorderline High Cholesterol: 200-239 mg/dLHigh Cholesterol: greater than 239 mg/dL LDL Cholesterol Calculated 130(H) <100 mg/dL [facility] Comment:Desirable LDL: less than 100 mg/dLNear Optimal/Above Optimal LDL: 110- 129 mg/dLBorderline High LDL: 130-159 mg/dLHigh LDL: 160-189 mg/dLVery High LDL: greater than or equal to 190 mg/dL HDL Cholesterol 41 >40 mg/dL [facility] Comment:Desirable HDL: great er than 40 mg/dL Note: This HDL assay may give artificially low results in patients with liver disease. Blood Venous blood specimen / Unknown 02/23/2024 4:30 PM EDT 02/23/2024 5:14 PM EDT us Monet Brunner MD LAB BLOOD ORDERABLES Final Result [facility] [address] [place] [address] [phone] * THINPREP TIS PAP AND HPV mRNA E6/E7 WITH REFLEX TO HPV 16,18/45 (01/12/2022 9:43 AM EST) Clinical Information: None given [facility] COMMENT SEE COMMENT [facility] Comment: EXPLANATORY NOTE: The Pap is a screening test for cervical cancer. It is not a diagnostic test and is subject to false negative and false positive results. It is most reliable when a satisfactory sample, regularly obtained, is submitted with relevant clinical findings and history, and when the Pap result is evaluated along with historic and current clinical information. Comment: This Pap test has been evaluated with computer assisted technology. [facility] Manufacturing Engineer Supervisor: SEE COMMENT [facility] Comment: ALS, CT(ASCP) CT screening location: [address] [address] HPV nRNA E6/E7 Not Detected Not Detected [facility] Comment: Methodology: Gl Accountant-Mediated Amplification This assay detects E6/E7 viral messenger RNA (mRNA) from 14 high-risk HPV types (16,18,31,33,35,39,45,51,52,56,58,59,66,68). The analytical performance characteristics of this assay have been determined by [employer]. The modifications have not been cleared or approved by the FDA. This assay has been validated pursuant to the CLIA regulations and is used for clinical purposes. For additional information, please refer to http://education.Seeder.ShopWiki/faq/WAN031m5 (This link if provided for information/ educational purposes only.) Interpretation/Re sult: Negative for intraepithelial lesion or malignancy. [facility] LMP: 01/04/22 IUD [facility] Prev. BX: NONE GIVEN [facility] Prev. PAP: NIL/HPV NEG 12/2018 [facility] SOURCE: None given [facility] Statement Of Adequacy: SEE COMMENT [facility] Comment: Satisfactory for evaluation. Endocervical/transformation zone component absent. 01/12/2022 9:43 AM EST us Ciara JORGE LAB PATHOLOGY ORDERABLES Final Result [facility] [address] from Last 3 Months or Most Recently Relevant to Health Maintenance Insurance [facility] [place] [id number] Care Teams Protective Services Social Worker Relationship Specialty Start Date End Date Monet Brunner MD [address] [place] [address] [place] [address] PCP - General Internal Medicine 12/27/18
--- OUTSIDE RECORDS SUMMARY | 2025-11-18 18:09 | XMS_ITS | Encounter Summary ---
Author Organization [facility] Address [address] [place] [address] Care Team Providers Care Sap Bi Architect Name Role Phone Monet Brunner Primary Care Provider + [phone] Reason for Visit * Reason Onset Date Comments Appointment within 4 weeks 07/17/2021 Rash on the hands Encounter Details Date Type Department Care Team (Late st Contact Info) Description 07/17/2021 Telephone [facility] Central Scheduling Department [address] [place] [address] Telephone Intake, Staff Appointment within 4 weeks (Rash on the hands) Social History Tobacco Use Types Packs/Day Years Used Date Smoking Tobacco: Never Smokeless Tobacco: Never Alcohol Use Standard Drinks/Week Comments Not Currently 0 (1 standard drink = 0.6 oz pur e alcohol) Comments Unknown Sex and Gender Information Value Date Recorded Sex Assigned at Female 11/27/2022 3:17 PM EST Legal Sex Female 10:28 AM EST Gender Identity Female 11/27/2022 3:17 PM EST Sexual Orientation Straight 11/27/2022 3: 17 PM EST documented as of this encounter Miscellaneous Notes * Telephone Encounter - Kaur Flores - 07/17/2021 9:37 AM EDT Patient instructed will be contacted within 1 week documented in this encounter Plan of Treatment Not on file documented as of this encounter Visit Diagnoses Not on filedocumented in this encounter Care Teams Sap Bi Architect Relationship Specialty Start Date End Date Monet Brunner [address] [place] [id number] PCP - General Internal Medicine 11/06/19 documented as of this encounter
--- OUTSIDE RECORDS SUMMARY | 2025-11-18 18:09 | XMS_ITS | Encounter Summary ---
Author Organization [employer] Address [address] [facility] [address] [place] [address] Care Team Providers Care Baton Teacher Name Role Phone Monet Brunner MD Primary Care Provider [phone] Encounter Details Date Type Department Care Team ([facility] st Contact Info) Description 08/27/2024 Orders Only [facility] [address] [place] [address] Provider, MD Neo Social History Tobacco Use Types Packs/Day Years Used Date Smoking Tobacco: Never Smokeless Tobacco: Never Depression Answer Date Recorded Patient Health Questionnaire-9 Score 0 04/12/2023 Housing Stability Answer Date Recorded What is your housing situation today? I have guillaumekaruna taveras 08/14/[address] you [...] Recorded Patient Health Questionnaire-2 Score 0 04/12/2023 Internet Access Answer Date Recorded Internet Access [...] on file documented as of this encounter Procedures Procedure Name Priority Date/Time Associated Diagnosis Comments CT CHEST W CONTRAST Routine 08/20/2024 1:47 PM EDT documented in this encounter Results * CT Chest w/ Contrast (08/20/2024 1:47 PM EDT) Anatomical Region Laterality Modality Body, Chest Computed Tomogra phy us Historical Provider MD JOINER CT PROCEDURES Final R esult documented in this encounter Visit Diagnoses Not on filedocumented in this encounter Additional Health Concerns Assessment Noted Time PHQ-9 Depression Total Score: 0 04/12/20 10:32 AM EDT documented as of this encounter Care Teams Baton Teacher Relationship Specialty Start Date End Date Monet Brunner MD [address] [place] [address] PCP - General Internal Medicine 12/27/18 documented as of this encounter
--- OUTSIDE RECORDS SUMMARY | 2025-11-18 18:09 | XMS_ITS | Encounter Summary ---
Author Organization [employer] Address 75 [facility] 7 [place] [address] Care Team Providers Care Director Of Agriculture Name Role Phone Monet Brunner MD Primary Care Provider [phone] Reason for Visit * Reason Comments Med Refill Encounter Details Date Type Department Care Team ([facility] [address] Contact Info) Description 09/05/2025 Refill [facility] [address] [place] [address] Monet Brunner MD [address] [place] [address] Obesity (BMI 30-39.9) Social History Tobacco Use Types Packs/Day Years [...] as of this encounter Visit Diagnoses Diagnosis Obesity (BMI 30-39.9) documented in this encounter Additional Health Concerns Assessment Noted Time PHQ-9 Depression Total Score: 1 01/16/20 25 3:59 PM EST documented as of this encounter Care Teams Director Of Agriculture Relationship Specialty Start Date End Date Monet Brunner MD [address] [place] [address] PCP - General Internal Medicine 12/27/18 documented as of this encounter
--- OUTSIDE RECORDS SUMMARY | 2025-11-18 18:09 | XMS_ITS | Encounter Summary ---
Author Organization [employer] Address [address] [facility] [address] [place] [address] Care Team Providers Care Scanning Manager Name Role Phone Monet Brunner MD Primary Care Provider [phone]- [phone] Encounter Details Date Type Department Care Team ([facility] st Contact Info) Description 02/11/2025 Orders Only [facility] [address] [place] [address] Monet Brunner MD [address] [place] [address] Class 1 obesity due to excess calories without serious comorbidity with body mass index (BMI) of 32.0 to 32.9 in adult (Primary Dx) Social History Tobacco Use Types [...] as of this encounter Visit Diagnoses Diagnosis Class 1 obesity due to excess calories without serious comorbidity with body mass index (BMI) of 32.0 to 32.9 in adult- Primary documented in this encounter Additional Health Concerns Assessment Noted Time PHQ-9 Depression Total Score: 1 01/16/20 25 3:59 PM EST documented as of this encounter Care Teams Scanning Manager Relationship Specialty Start Date End Date Monet Brunner MD [address] [place] [address] PCP - General Internal Medicine 12/27/18 documented as of this encounter
--- OUTSIDE RECORDS SUMMARY | 2025-11-18 18:09 | XMS_ITS | Encounter Summary ---
Author Organization [facility] Address [address] [place] [address] Care Team Providers Care Neighborhood Planner Name Role Phone Monet Brunner Primary Care Provider [phone] Reason for Visit * Reason Onset Date Comments Actionable Finding 09/12/2023 Encounter Details Date Type Department Care Team (Late st Contact Info) Description 09/12/2023 Telephone [facility] - Actionable Findings [address] [place] [address] Karen Fischer LPN Actionable Finding Social History Tobacco Use Types Packs/Day Years [...] encounter Miscellaneous Notes * Telephone Encounter - Karen Fischer LPN - 09/12/2023 9:23 AM EDT Actionable finding review of CT (Chest) Date of scan: 08/31/23 Location of scan: [place] Actionable Findings performed a review of radiology result(s). Karen Nicole LPN at [phone] documented in this encounter Plan of Treatment Not on file documented as of this encounter Visit Diagnoses Not on filedocumented in this encounter Care Teams Neighborhood Planner Relationship Specialty Start Date End Date Monet Brunner [address] [place] [address] PCP - General Internal Medicine 11/06/19 documented as of this encounter
--- OUTSIDE RECORDS SUMMARY | 2025-11-18 18:09 | XMS_ITS | Encounter Summary ---
Author Organization [employer] Address [address] [place] [address] [place] [address] Care Team Providers Care Licensed Chemical Spray Technician Name Role Phone Monet Brunner MD Primary Care Provider +1- [phone] Reason for Referral * Consultation (Routine) - Closed Specialty Diagnoses / Procedures Referred By Contac t Referred To Contact Infectious Diseases Diagnoses Positive QuantiFERON-TB Gold test Monet Brunner MD [address] [place] [address] Phone: tel: fax: Referral ID Status Reason Start Date Expiration Date V isits Requested Visits Authorized [id number] Closed Specialty Services Required 07/25/2024 07/25/2025 1 1 Encounter Details Date Type Department Care Team ([facility] st Contact Info) Description 07/25/2024 Orders Only [facility] CHC MED & PEDS [address] [place] [address] Monet Brunner MD [address] [place], [place] [phone] 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 I have guillaume sing 09/14/[address] you li [...] as of this encounter Plan of Treatment Scheduled Referrals Name Type Priority Associated Diagnoses Orde r Schedule Referral to TB Clinic Outpatient Referral Routine Positive QuantiFERON-TB Gold test Expected: 07/25/2024 (Approximate), Expires: 07/25/2025 documented as of this encounter Visit Diagnoses Diagnosis Positive QuantiFERON-TB Gold test- Primary Obesity (BMI 30-39.9) documented in this encounter Additional Health Concerns Assessment Noted Time PHQ-9 Depression Total Score: 0 04/12/20 23 10:32 AM EDT documented as of this encounter Care Teams Licensed Chemical Spray Technician Relationship Specialty Start Date End Date Monet Brunner MD [address] [place] [address] PCP - General Internal Medicine 12/27/18 documented as of this encounter
--- OUTSIDE RECORDS SUMMARY | 2025-11-18 18:09 | XMS_ITS | Encounter Summary ---
Author Organization [employer] Address 75 [facility] 7 [place] [address] Care Team Providers Care Pipeline Maintenance Supervisor Name Role Phone Monet Brunner MD Primary Care Provider +1- [phone] Encounter Details Date Type Department Care Team ([facility] Contact Info) Description 02/21/2025 Orders Only [facility] CHC MED & PEDS [address] [place], [place] [phone] Monet Brunner MD [address] [place] [address] Obesity (BMI 30-39.9) (Primary Dx) Social History Tobacco Use Types [...] this encounter Visit Diagnoses Diagnosis Obesity (BMI 30-39.9)- Primary documented in this encounter Additional Health Concerns Assessment Noted Time PHQ-9 Depression Total Score: 1 01/16/20 25 3:59 PM EST documented as of this encounter Care Teams Pipeline Maintenance Supervisor Relationship Specialty Start Date End Date Monet Brunner MD [address] [place] [address] PCP - General Internal Medicine 12/27/18 documented as of this encounter
--- OUTSIDE RECORDS SUMMARY | 2025-11-18 18:09 | XMS_ITS | Encounter Summary ---
Author Organization [employer] Address 75 [facility] 7 [place] [address] Care Team Providers Care Training Lead Name Role Phone Monet Brunner MD Primary Care Provider +1- [phone] Encounter Details Date Type Department Care Team ([facility] st Contact Info) Description 06/18/2024 Orders Only [facility] CHC MED & PEDS [address] [place], [place] [phone] Monet Brunner MD [address] [place] [address] Obesity (BMI 30-39.9) (Primary Dx) Social History Tobacco Use Types Packs/Day Years Used Date Smoking Tobacco: Never Smokeless Tobacco: Never Depression Answer Date Recorded Patient Health Questionnaire-9 Score 0 04/12/2023 Housing Stability Answer Date Recorded What is your housing situation today? I have guillaume atveras 09/14/[address] you li [...] documented as of this encounter Care Teams Training Lead Relationship Specialty Start Date End Date Monet Brunner MD [address] [place] [address] PCP - General Internal Medicine 12/27/18 documented as of this encounter
--- OUTSIDE RECORDS SUMMARY | 2025-11-18 18:09 | XMS_ITS | Encounter Summary ---
Author Organization [employer] Address 75 [facility] 7 [place] [address] Care Team Providers Care Cloth Laminating Supervisor Name Role Phone Monet Brunner MD Primary Care Provider +1- [phone] Encounter Details Date Type Department Care Team (Late st Contact Info) Description 08/24/2024 Orders Only [facility] [address] [place] [address] Provider, MD Neo Social History Tobacco Use [...] Name Priority Date/Time Associated Diagnosis Comments CT ABDOMEN PELVIS W CONTRAST Routine 08/20/2024 9:16 AM EDT documented in this encounter Results * CT Abdomen Pelvis w/ Contrast (08/20/2024 9:16 AM EDT) Anatomical Region Laterality Modality Body, Pelvis, Abdomen Computed T omography us Historical Provider MD JOINER CT PROCEDURES Final R esult documented in this encounter Visit Diagnoses Not on filedocumented in this encounter Additional Health Concerns Assessment Noted Time PHQ-9 Depression Total Score: 0 04/12/20 10:32 AM EDT documented as of this encounter Care Teams Cloth Laminating Supervisor Relationship Specialty Start Date End Date Monet Brunner MD [address] [place] [address] PCP - General Internal Medicine 12/27/18 documented as of this encounter
--- OUTSIDE RECORDS SUMMARY | 2025-11-18 18:09 | XMS_ITS | Clinical Summary ---
Author Organization [facility] Address [address] [place] [address] Care Team Providers Care Rn Palliative Name Role Phone Monet Brunner Primary Care Provider [phone] Allergies No known active allergies Medications cholecalciferol (VITAMIN D3) 1,000 unit tablet Take 1,000 Units by mouth once a day. 10/26/2022 Active atenoloL-chlort halidone (TENORETIC) 50-25 mg per tablet SMARTSI Tablet(s) By Mouth Every Morning 04/12/2023 Active cetirizine (ZyrTEC) 10 mg tablet SMARTSI Tablet(s) By Mouth Every Morning 06/08/2023 Active triamcinolone acetonide (KENALOG) 0.1% cream SMARTSIG:Top ical Morning-Nigh t PRN 04/12/2023 Active venlafaxine (EFFEXOR) 37.5 mg tablet Take 1 tablet (37.5 mg total) by mouth once a day. 90 tablet 3 09/04/2024 Active Active Problems Problem Noted Date Diagnosed Date Encounter for coordination of complex care Uterine neoplasm of uncertain malignant potentia l 07/18/2023 BP (high blood pressure) 03/07/2023 IUD (intrauterine device) in place 08/20/2021 Overview (08/20/2021): Liletta placed 12/14/2016. Effective through 2022 Resolved Problems Problem Noted Date Diagnosed Date Resolved Date Uterine fibroid 06/27/2023 06/27/2023 Family History Medical History Relation Name Comments Stomach cancer Father Breast cancer Neg Hx Colon cancer Neg Hx Ovarian cancer Neg Hx Relation Name Status Comments Father Social History Tobacco Use Types Packs/Day Years Used Date Smoking Tobacco: Never Smokeless Tobacco: Never Tobacco Cessation:Counseling Given: Not Answered Alcohol Use Standard Drinks/Week Comments Yes 0 (1 standard drink = 0.6 oz pur e alcohol) occasional - 1 per month Comments No Sex and Gender Information Value Date Recorded Sex Assigned at Female 11/27/2022 3:17 PM EST Legal Sex Female 10:28 AM EST Gender Identity Female 11/27/2022 3:17 PM EST Sexual Orientation Straight 11/27/2022 3: 17 PM EST Last Filed Vital Signs Vital Sign Reading Time Taken Comments Blood Pressure 106/78 09/04/2024 11:44 AM EDT Pulse 68 01/23/2024 2:16 PM EST Temperature 36.6 C (97.8 F) 01/23/2024 2:16 PM EST Respiratory Rate 16 06/27/2023 12:08 PM EDT Oxygen Saturation 96% 01/23/2024 2:16 PM EST Inhaled Oxygen Concentration - - Weight 73.9 kg (163 lb) 09/04/2024 11:44 AM EDT Height 157.5 cm (5' 2.01 ) 07/18/2023 1:06 PM ED T Body Mass Index 29.81 07/18/2023 1:06 PM EDT Plan of Treatment Health Maintenance Due Date Last Done Comments Cologuard 1978 Colonoscopy 1978 HIV Screening 1978 Hepatitis C Screening 1978 Sigmoidoscopy 1978 Colon Cancer Screening 04/01/2024 FOBT / Fit Test 04/01/2024 04/01/2023 Basic Metabolic Panel 06/24/2024 06/24/2023 , 04/08/2023, 04/01/2023 Hepatitis B Vaccines (2 of 2 - CpG 2-dose series) 08/12/2024 07/15/2024 Alcohol/Substance Use Screening 11/28/2024 Depression Screening and Follow-Up 11/28/2024 Social Drivers of Health Annual Screening 11/28/2024 Influenza Vaccine (#1) 2025 , 08/17/2022, 12/25/2021 COVID-19 Vaccine ( season) 2025 07/17/2024, 09/16/2021, 03/11/2021, Additional history exists Mammogram 10/10/2025 10/10/2023, 09/28, 10/27/2022, Additional history exists DTaP,Tdap,and Td Vaccines (3 - Td or Tdap) 12/28/2031 12/28/2021, 08/12/2014 Cervical Cancer Screening Discontinued Pap Smear Discontinued 06/25/2021 HPV and Pap Smear Discontinued Pneumococcal Vaccine: Pediatric (0-5 Years) and At-Risk Patients (6-50 Years) Aged Out No longer eligible based on patient's age to complete this topic Procedures * Due to [employer] law, this organization might not be sharing negative HIV tests. Procedure Name Priority Date/Time Associated Diagnosis Comments BUD LEFT DIAGNOSTIC DIGITAL MAMMO WITH COLIN Routine 10/10/2023 1:21 PM EST Uterine neoplasm of uncertain malignant potential BASIC METABOLIC PANEL Routine 06/24/2023 11:22 AM EDT Abnormal uterine bleeding Intramural leiomyoma of uterus Hypertension, unspecified type Pre-op evaluation PAP Routine 06/25/2021 Pelvic pain from Last 3 Months or Most Recently Relevant to Health Maintenance Results * Due to [place] [employer] law, this organization might not be sharing negative HIV tests. * [facility] Left Diagnostic Digital Mammo and Colin (10/10/2023 1:21 PM EST) Anatomical Region Laterality Modality Breast Left Mammography Narrative 10/10/2023 2:00 PM EST INDICATIONS Callback for asymmetry superior left breast posterior depth on outside mammogram. TECHNIQUE US Left Breast Limited BUD Left Diagnostic Digital Mammo and Colin. R2 CAD was used in the interpretation of this study. COMPARISON Outside mammograms from 10/27/2022 and 09/24/2021 FINDINGS BUD Left Diagnostic Digital Mammo and Colin The left breast is heterogeneously dense, which may obscure small masses. The superior asymmetry posteriorly more likely favors normal fibroglandular tissue. There is no evidence of suspicious masses, calcifications, or other abnormal findings in the left breast. US Left Breast Limited Targeted color Doppler ultrasound of the upper outer quadrant from the 12 to 3 o'clock position is performed and demonstrates no underlying sonographic abnormality. IMPRESSION BI-RADS ATLAS category (left): 1 - Negative MANAGEMENT Patient is due for her annual bilateral screening mammograms on October 28, 2023. Rather than call her insurance patient prefers to wait 18 days for her screening mammogram. At that time the right breast alone may be performed. The patient was entered into a reminder system with a target date for their next breast imaging exam. If this radiology report contains a blank impression section, it is an incomplete radiology report. Please contact the interpreting radiologist or applicable radiology division as soon as possible to obtain the completed interpretation. us Genevieve Hinkle MD IMG BI PROCEDURES Final Resu lt * (ABNORMAL) Basic Metabolic Panel (06/24/2023 11:22 AM EDT) NA 135 135 - 145 mmol/L 06/24/2023 12:59 PM EDT [facility] K 3.3(L) 3.5 - 5.3 mmol/L 06/24/2023 12:59 PM EDT [facility] Cl 98 97 - 110 mmol/L 06/24/2023 12:59 PM EDT [facility] CO2 27 24 - 32 mmol/L 06/24/2023 12:59 PM EDT [facility] BUN 14 7 - 23 mg/dL 06/24/2023 12:59 PM EDT [facility] Creatinine 0.77 0.50 - 1.20 mg/dL 06/24/2023 12:59 PM EDT [facility] Glucose 132(H) 70 - 99 mg/dL 06/24/2023 12:59 PM EDT [facility] Calcium 9.6 8.7 - 10.7 mg/dL 06/24/2023 12:59 PM EDT [facility] Anion Gap 10 5 - 15 06/24/2023 12:59 PM EDT [facility] eGFR >90 >=60 mL/min/1. 73m2 06/24/2023 12:59 PM EDT [facility] Comment:The estimated glomer ular filtration rate (eGFR) is calculated using a new formula developed by the NKF-ASN task force to eliminate race-based correction factors. The new formula uses serum/plasma creatinine, age, and gender to determine eGFR. A value below 60mls/min might indicate kidney disease and will be flagged. For additional information, see Chakraborty et al, Am J Kidney Dis. 2021;79(2):268- 288, A Unifying Approach for GFR estimation: Recommendations of the NKF-ASN Task Force on Reassessing the Inclusion of Race in Diagnosing Kidney Disease . Blood Structure of peripheral vein / Unknown Venipuncture / Unknown 06/24/2023 11:22 AM EDT 06/24/2023 12:22 PM EDT us Tab [facility] BLOOD ORDERABLES Final Result [facility] [address] [place] [address], [place] * Pap (06/25/2021) Specimen Adequacy Satisfactory for evaluation, endocervical/wasserman sformation zone component absent [employer] MANUAL 1 10:44 AM EDT [facility]ORAT[facility] Pathologist Cytology Interpretation Negative for intraepithelial lesion or malignancy. [employer] MANUAL 1 10:44 AM EDT [employer] [facility] at 1044 EDT Comment:This is the result o f a morphological screening test with an inherent possibility of a false negative interpretation. Book Binder Statement This Pap test was examined by the [facility], [employer], [place], [place]. This Pap test was examined in accordance with the [facility] Cytopathology Laboratory written policy, which incorporates all CLIA mandates. Screening guidelines can be found in Am J Clin Pathol 2012;137:516-542. We endorse the practice guidelines developed by ASCCP and published in the Journal Lower Genital Tract Disease 17(5):S1-S27 (2013). [facility] MAN[facility] 1 10:44 AM EDT [facility] Clinical History cervical cancer screening [facility] MANUAL 10:44 AM EDT [facility] Resulting Agency Case was signed out at [facility], Department of Pathology, [employer] 3 CLIA [id number] [facility] MANUAL 10:44 AM EDT [facility] Report Header Gynecologic Cytology Report Case: [id number] Authorizing Provider: So Gutierres Collected: 06/25/2021 Ordering Location: [facility] Received: 06/25/[address] [place] [address] Obstetrics and Gynecology First Screen: Estevan Bah Specimen: Screening ThinPrep Pap, Cervix/Endocervix 10:44 AM EDT [facility] Brushing Cervix uteri structure / Unknown 06/25/2021 06/25/2021 1:26 PM EDT So Gutierres [facility] PATHOLOGY/CYTOLOGY ORDERABL ES Final Result [facility] [address], from Last 3 Months or Most Recently Relevant to Health Maintenance Insurance [facility] Advance Directives * Full Code (Latest Code Status on File) Date Activated Date Inactivated Comments 06/27/2023 5:49 AM 06/27/2023 4:34 PM Healthcare Agents on File Name Relationship Healthcare Agent Relationship Communication Edgar Chávez Son Next of Kin [email or web address] Care Teams Rn Palliative Relationship Specialty Start Date End Date Monet Brunner [address] [place] [address] [place] [address] PCP - General Internal Medicine 11/06/19
--- OUTSIDE RECORDS SUMMARY | 2025-11-18 18:09 | XMS_ITS | Encounter Summary ---
Author Organization [employer] Address 75 [facility] 7 [place] [address] Care Team Providers Care Kennel Aide Name Role Phone Monet Brunner MD Primary Care Provider +1- [phone] Reason for Visit * Reason Comments Med Refill Encounter Details Date Type Department Care Team ([facility] Contact Info) Description 03/31/2024 Refill [facility] CHC MED & PEDS [address] [place] [address] Monet Brunner MD [address] [place], [place] [phone] Essential hypertension Social History Tobacco Use Types Packs/Day Years [...] as of this encounter Visit Diagnoses Diagnosis Essential hypertension Unspecified essential hypertension documented in this encounter Additional Health Concerns Assessment Noted Time PHQ-9 Depression Total Score: 0 04/12/20 23 10:32 AM EDT documented as of this encounter Care Teams Kennel Aide Relationship Specialty Start Date End Date Monet Brunner MD [address] [place] [address] PCP - General Internal Medicine 12/27/18 documented as of this encounter
--- OUTSIDE RECORDS SUMMARY | 2025-11-18 18:09 | XMS_ITS | Encounter Summary ---
Author Organization [employer] Address [address] [address] Care Team Providers Care Printing Table Hand Name Role Phone Monet Brunner MD Primary Care Provider Encounter Details Date Type Department Care Team ([facility] st Contact Info) Description 11/19/2022 Orders Only [facility] MEDICINE [address] [place], [place] [phone] Monet Brunner MD [address] [place], [place] [phone] Vagina bleeding (Primary Dx) Social History Tobacco Use Types Packs/Day Years Used Date Smoking Tobacco: Never Assessed Comments Unknown Sex and Gender Information Value Date Recorded Sex Assigned at Female 09/27/2022 10:34 AM EDT Legal Sex Female 10:34 AM EDT Gender Identity Female 09/27/2022 10:34 AM EDT Sexual Orientation Straight 09/27/2022 10 :34 AM EDT documented as of this encounter Plan of Treatment Not on file documented as of this encounter Visit Diagnoses Diagnosis Vagina bleeding- Primary Other specified noninflammatory disorder of vagina documented in this encounter Care Teams Printing Table Hand Relationship Specialty Start Date End Date Monet Brunner MD [address] [place] [address] PCP - General Internal Medicine 12/27/18 documented as of this encounter
--- OUTSIDE RECORDS SUMMARY | 2025-11-18 18:09 | XMS_ITS | Encounter Summary ---
Author Organization [employer] Address 75 [facility] 7t [place] [address] Care Team Providers Care Molding Press Operator Name Role Phone Monet Brunner MD Primary Care Provider +1- [phone] Encounter Details Date Type Department Care Team ([facility] st Contact Info) Description 07/19/2024 Orders Only [facility] [address] [place] [address] Monet Brunner MD [address] [place] [address] Social History Tobacco Use Types Packs/Day Years [...] documented as of this encounter Care Teams Molding Press Operator Relationship Specialty Start Date End Date Monet Brunner MD [address] [place] [address] PCP - General Internal Medicine 12/27/18 documented as of this encounter
--- OUTSIDE RECORDS SUMMARY | 2025-11-18 18:09 | XMS_ITS | Encounter Summary ---
Author Organization [facility] Address [address] [place] [address] Care Team Providers Care Investigator Name Role Phone Monet Brunner Primary Care Provider Encounter Details Date Type Department Care Team (Late st Contact Info) Description 05/23/2024 Orders Only [address] 5th [place] [address] Neftali Silva MD [address] [place] [address] Social History Tobacco Use Types Packs/Day Years [...] on filedocumented in this encounter Care Teams Investigator Relationship Specialty Start Date End Date Monet Brunner [address] [place] [address] PCP - General Internal Medicine 11/06/19 documented as of this encounter
--- OUTSIDE RECORDS SUMMARY | 2025-11-18 18:09 | XMS_ITS | Encounter Summary ---
Author Organization [employer] Address 75 [facility] 7 [place] [address] Care Team Providers Care Electrophysiology Technologist Name Role Phone Monet Brunner MD Primary Care Provider +1- [phone] Encounter Details Date Type Department Care Team ([facility] st Contact Info) Description 02/24/2024 Orders Only [facility] MED & PEDS [address] [place], [place] [phone] Monet Brunner MD [address] [place] [address] Hypokalemia (Primary Dx); Primary hypertension; Low vitamin D level Social History Tobacco Use Types Packs/Day Years [...] as of this encounter Visit Diagnoses Diagnosis Hypokalemia- Primary Hypopotassemia Primary hypertension Unspecified essential hypertension Low vitamin D level documented in this encounter Additional Health Concerns Assessment Noted Time PHQ-9 Depression Total Score: 0 04/12/20 23 10:32 AM EDT documented as of this encounter Care Teams Electrophysiology Technologist Relationship Specialty Start Date End Date Monet Brunner MD [address] [place] [address] PCP - General Internal Medicine 12/27/18 documented as of this encounter
--- OUTSIDE RECORDS SUMMARY | 2025-11-18 18:09 | XMS_ITS | Encounter Summary ---
Author Organization [employer] Address 75 [facility] 7t [place] [address] Care Team Providers Care Industrial Technology Education Teacher Name Role Phone Monet Brunner MD Primary Care Provider +1- [phone] Encounter Details Date Type Department Care Team (Late st Contact Info) Description 06/27/2023 Orders Only [facility] [address] [place], [place] [phone] Pérez Moscoso MD [address] [place] [address] Hypokalemia (Primary Dx) Social History Tobacco Use Types [...] Orientation Straight 09/27/2022 10 :34 AM EDT COVID-19 Exposure Response Date Recorded In the last 10 days, have yo u been in contact with someone who was confirmed or suspected to have Coronavirus/COVID-19? No / Unsure 06/07/2023 8:56 PM EDT documented as of this encounter Plan of Treatment Scheduled Orders Name Type Priority Associated Diagnoses Orde r Schedule Potassium Lab Routine Hypokalemia Expected: 06/27/2023 (Approximate), Expires: 06/27/2024 documented as of this encounter Visit Diagnoses Diagnosis Hypokalemia- Primary Hypopotassemia documented in this encounter Additional Health Concerns Assessment Noted Time PHQ-9 Depression Total Score: 0 04/12/20 23 10:32 AM EDT documented as of this encounter Care Teams Industrial Technology Education Teacher Relationship Specialty Start Date End Date Monet Brunner MD [address] [place] [address] PCP - General Internal Medicine 12/27/18 documented as of this encounter
== END 2025-11-18 14:55 | disposition home or self-care (01) ==
LOC: HO.MAMMO 14:54
PROVIDERS: PCP Internal Medicine; Visit Provider Internal Medicine
DX: Z12.31 Encounter for screening mammogram for malignant neoplasm of breast (principal)
CPT/HCPCS: 77063; 77067

== ENCOUNTER → 2025-11-18 15:00 | Outpatient (BNV) | payer OTHER, SELFPAY | PROVIDERS: PCP Internal Medicine; Visit Provider Internal Medicine | DX: Z12.31 Encounter for screening mammogram for malignant neoplasm of breast (principal) | CPT/HCPCS: 77063; 77067 ==